=== PATIENT | female | born 1965 | race Caucasian/White ===

== ENCOUNTER 2021-03-11 07:52 | Day surgery (SDC) | payer OTHER ==
[2021-03-02 11:53] VITALS: BMI 20.5
[2021-03-11] MEDS ORDERED: MIDAZOLAM HCL 2 MG/2 ML SINGLE DOSE VIAL ONE ×3 (10:06→13:10)
[2021-03-11] MEDS ORDERED: ROPIVACAINE HCL 0.5% 30ML VIAL ONE (10:07)
[2021-03-11] MEDS ORDERED: DEXAMETHASONE SOD PHOSPHATE 10 MG/1 ML VIAL ONE (10:07)
[2021-03-11] MEDS ORDERED: PROPOFOL 20 ML ONE ×3 (10:44)
[2021-03-11] MEDS ORDERED: ONDANSETRON 4 MG/2 ML VIAL ONE (12:12)
[2021-03-11] MEDS ORDERED: TRANEXAMIC ACID 1000 MG/10 ML VIAL ONE (12:12)
[2021-03-11] MEDS ORDERED: DEXAMETHASONE SOD PHOSPHATE 4 MG/1 ML VIAL ONE (12:12)
[2021-03-11] MEDS ORDERED: EPINEPHrine 1:1,000 1 MG/1 ML - 30ML VIAL (INJECTION) ONE (12:52)
[2021-03-11] MEDS ORDERED: oxyCODONE HCL 5 MG TABLET PO PRN (13:44)
[2021-03-11] MEDS ORDERED: ONDANSETRON 4 MG/2 ML VIAL IVPUSH PRN (13:44)
[2021-03-11] MEDS ORDERED: ACETAMINOPHEN 1000 MG/100 ML VIAL (NON FORMULARY) IVPB PRN (13:44)
[2021-03-11] MEDS ORDERED: LACTATED RINGERS SOLUTION 1,000 ML IV SCH (13:45)
[2021-03-11 14:04] VITALS: TEMP 97.8
[2021-03-11 15:54] VITALS: BP 126/70; PULSE 72
== END 2021-03-11 16:13 | disposition home or self-care (01) ==
LOC: FASU 07:52
PROVIDERS: ATTEND Orthopaedic Surgery Sports Medicine
PROC: 0LQ14ZZ Repair Right Shoulder Tendon, Percutaneous Endoscopic Approach (ICD-10-PCS; principal; 2021-03-11 11:31)
PROC: 0RNJ4ZZ Release Right Shoulder Joint, Percutaneous Endoscopic Approach (ICD-10-PCS; 2021-03-11 11:31)
DX: M75.121 Complete rotator cuff tear or rupture of right shoulder, not specified as traumatic (principal); M75.41 Impingement syndrome of right shoulder
CPT/HCPCS: 94760; J1100

== ENCOUNTER 2023-08-29 11:52 | Emergency (ER) | payer OTHER ==
[2023-08-29 12:00] VITALS: RESP 17; TEMP 98.5; BMI 22.3
[2023-08-29 12:10] VITALS: BP 143/81
[2023-08-29] MEDS ORDERED: SODIUM CHLORIDE 500 ML IV ONE (12:11)
[2023-08-29 12:24] VITALS: PULSE 78
[2023-08-29] MEDS ORDERED: ACETAMINOPHEN INJECTION 100 ML IVPB ONE (12:40)
[2023-08-29 12:48] LABS: HEMATOCRIT 39.4 % (32.4-45.2); HEMOGLOBIN 13.5 G/dL (10.7-15.3); MCH 32.7 pg (25.7-33.7); MCHC 34.2 g/dl (32.0-36.0); MEAN CELL VOLUME 95.9 fl (80-96); MEAN PLT VOLUME 9.1 fl (7.5-11.1); PLATELET COUNT 209.7 10^3/uL (134-434); RBC 4.11 10^6/uL (3.60-5.2); RDW 14.1 % (11.6-15.6); WHITE BLOOD COUNT 6.4 10^3/uL (4.0-10.8)
[2023-08-29 12:55] LABS: ALBUMIN 4.7 g/dl (3.4-5.0); BILIRUBIN,TOTAL 0.6 mg/dl (0.2-1); CALCIUM 9.6 mg/dl (8.5-10.1); CREATININE 0.7 mg/dl (0.6-1.3); POTASSIUM 3.8 mmol/L (3.5-5.1); TOT PROT 7.1 g/dl (6.4-8.2)
[2023-08-29] MEDS: ACETAMINOPHEN 1000 MG/100 ML BAG IVPB ONE (12:56)
[2023-08-29] MEDS: SODIUM CHLORIDE 0.9% 1000 ML INFUS.BAG IV ONE (12:56)
== END 2023-08-29 14:19 | disposition home or self-care (01) ==
LOC: FER 11:52
PROC: 3E033NZ Introduction of Analgesics, Hypnotics, Sedatives into Peripheral Vein, Percutaneous Approach (ICD-10-PCS; principal; 2023-08-29)
DX: S06.0X1A Concussion with loss of consciousness of 30 minutes or less, initial encounter (principal); R55 Syncope and collapse; R11.0 Nausea; W01.198A Fall on same level from slipping, tripping and stumbling with subsequent striking against other object, initial encounter
CPT/HCPCS: 36415; 70450-TC; 71045-TC-FY; 80053; 81003; 81015; 82962; 84484; 85027; 87086; 93005; 99285-25; J0131